=== PATIENT | female | born 1965 | race African-American/Black ===

== ENCOUNTER 2019-07-31 19:09 | Emergency (ER) | payer BC ==
[2019-07-31 19:21] VITALS: BP 148/86
[2019-07-31 19:45] LABS: Influenza A Molecular NEGATIVE (Negative); Influenza B Molecular NEGATIVE (Negative)
[2019-07-31] MEDS ORDERED: Acetaminophen TAB* 325 MG PO ONE (19:46)
[2019-07-31] MEDS ORDERED: Albuterol/Ipratropium NEB.SOL* Albuterol 2.5 MG/Ipratropium 0.5 MG 3 ML INH ONE (19:46)
--- NOTE | 2019-07-31 19:53 | UC ---
FLU HPI - HPI Summary HPI Summary: got back in the [facility] from [facility] this week---Began withuri sx about 1 week ago then got better---and then fever body aches cough and chest congestion began yesterday---did have one small emesis this afternoon 3 hours after eating - History of Current Complaint Chief Complaint: UCGeneralIllness Stated Complaint: cough, and chest CONGESTION Time Seen by Provider: 07/31/19 19:22 Hx Obtained From: Patient ?: No Onset/Duration: Gradual Onset, Lasting Days - 7, Worse Since - pa2 days Pain Intensity: 7 Pain Scale Used: 0-10 Numeric Associated Signs & Symptoms: Positive: Fever - 103.6, Myalgia, Cough, Sore Throat, Nasal Congestion, Headache, Vomiting Related Hx: Possible Flu/Infectious Exposure - airplane travel---no travel health warnings issued for Jennifer, Recent Antipyretics Dose And Time - tylenol 4 hours ago - Allergy/Home Medications Allergies/Adverse Reactions: Allergies Allergy/AdvReac Type Severity Reaction Status Date / Time ibuprofen Allergy Severe Airway Verified 07/31/19 19:21 Obstruction Home Medications: Home Medications Fluticasone DISKUS 100 MCG(NF) [Flovent Diskus 100 MCG(NF)] 1 puff INH BID 07/31 [History Confirmed 07/31/19] PMH/Surg Hx/FS Hx/Imm Hx Previously Healthy: No Respiratory History: Asthma - Surgical History Surgical History: Yes Surgery Procedure, Year, and Place: UTERINE FIBROIDS - Family History Known Family History: Positive: None - Social History Occupation: Employed Full-time Lives: With Family Alcohol Use: Rare Substance Use Type: None Smoking Status (MU): Former Smoker Review of Systems All Other Systems Reviewed And Are Negative: Yes Constitutional: Positive: Fever, Chills, Fatigue Skin: Positive: Negative Eyes: Positive: Blurred Vision ENT: Positive: Sore Throat Respiratory: Positive: Cough Cardiovascular: Positive: Negative Gastrointestinal: Positive: Negative Genitourinary: Positive: Negative Motor: Positive: Negative Neurovascular: Positive: Negative Musculoskeletal: Positive: Negative Neurological: Positive: Negative Psychological: Positive: Negative Is Patient Immunocompromised?: No Physical Exam Triage Information Reviewed: Yes Appearance: No Pain Distress, Well-Nourished, Ill-Appearing - mild Vital Signs: Initial Vital Signs Temp 103.6 F 07/31/19 19:14 Pulse 94 12/28/19 19:14 Resp 19 07/31/19 19:14 BP 148/86 07/31/19 19:14 Pulse Ox 97 07/31/19 19:14 Vital Signs Reviewed: Yes Eye Exam: Normal Eyes: Positive: Conjunctiva Clear ENT Exam: Normal ENT: Positive: Normal ENT inspection, Hearing grossly normal, Pharynx normal, TMs normal, Uvula midline. Negative: Nasal congestion, Tonsillar swelling, Tonsillar exudate, Trismus, Muffled voice, Hoarse voice, Sinus tenderness Dental Exam: Normal Neck exam: Normal Neck: Positive: Supple, Nontender Respiratory Exam: Normal Respiratory: Positive: Chest non-tender, No respiratory distress, No accessory muscle use, Decreased breath sounds. Negative: Wheezing Cardiovascular Exam: Normal Cardiovascular: Positive: RRR, No Murmur, Pulses Normal, Brisk Capillary Refill Musculoskeletal Exam: Normal Musculoskeletal: Positive: Strength Intact, ROM Intact, No Edema Neurological Exam: Normal Neurological: Positive: Alert, Muscle Tone Normal Psychological Exam: Normal Skin Exam: Normal Diagnostics - Laboratory Lab Results: ua -, rst-, influenza a/b - - Radiology No standard instances Radiology Interpretation Completed By: ED Physician - no acute cardiovascular dz. Re-Evaluation - Re-Evaluation First Eval Change: Improved - increase air movement and is feeling better-- temp 100.9 Flu Course/Dx - Course Course Of Treatment: increase fluids, Tylenol for fever---refilling albuterol for asthma plan to go to ed if symptoms worsen ---follow with pcp on Friday - Differential Dx/Diagnosis Provider Diagnosis: Viral syndrome, Febrile illness Discharge ED - Sign-Out/Discharge Documenting (check all that apply): Patient Departure All imaging exams completed and their final reports reviewed: No - Discharge Plan Condition: Stable Disposition: HOME Patient Education Materials: Viral Syndrome (ED), Bronchospasm (ED) Referrals: Eliud Oshea NP [Primary Care Provider] - 2 Days - Billing Disposition and Condition Condition: STABLE Disposition: Home
[2019-07-31] MEDS ORDERED: Albuterol HFA INHALER* 8 gm MDI INH ONE (20:50)
--- NOTE | 2019-08-01 11:23 | UC ---
- Progress Note Progress Note: Final radiologist reading for chest x-ray from July 31, 2019 comes back as no acute disease process. Provider interpretation same date is the same therefore there is no discrepancy. Course/Dx - Diagnoses Provider Diagnoses: Viral syndrome, Febrile illness Discharge ED - Sign-Out/Discharge Documenting (check all that apply): Patient Departure All imaging exams completed and their final reports reviewed: Yes - Discharge Plan Condition: Stable Disposition: HOME Patient Education Materials: Viral Syndrome (ED), Bronchospasm (ED) Referrals: Eliud Oshea NP [Primary Care Provider] - 2 Days - Billing Disposition and Condition Condition: STABLE Disposition: Home
== END 2019-07-31 21:07 | disposition home or self-care (01) ==
LOC: UCEAST 19:09
DX: B34.9 Viral infection, unspecified (principal); R50.9 Fever, unspecified; J02.9 Acute pharyngitis, unspecified; H53.8 Other visual disturbances; R05 Cough; J45.909 Unspecified asthma, uncomplicated; M79.10 Myalgia, unspecified site; R09.81 Nasal congestion; R51 Headache; R11.10 Vomiting, unspecified; R53.83 Other fatigue; Z88.8 Allergy status to other drugs, medicaments and biological substances; Z87.891 Personal history of nicotine dependence
CPT/HCPCS: 71046; 81003; 87651; 99212; A9270-GY; G0463